=== PATIENT | male | born 1985 | race Caucasian/White ===

== ENCOUNTER → 2024-12-10 | Outpatient (CLI) | payer SELFPAY ==
--- NOTE | 2024-12-10 15:08 | RAD_ITS ---
PROCEDURE: KNEE 4 OR MORE VIEWS 12/10/2024 REASON FOR EXAM: L KNEE PAIN TECHNIQUE: Four views of the left knee COMPARISON: None RAD/Knee 4 or More Views IMPRESSION: No acute fracture or dislocations. Mild joint effusion. Minimal degenerative changes of the left knee. Minimal soft tissue edema. No radiographic foreign body. Consider CT/MR if symptoms persist. Reading Location: [id number]
== END | disposition home or self-care (01) ==
PROVIDERS: Referring Provider Nurse Practitioner Family; Visit Provider Nurse Practitioner Family
DX: M25.562 Pain in left knee (principal)
CPT/HCPCS: 73564